=== PATIENT | female | born 1970 | race Caucasian/White ===

== ENCOUNTER → 2016-05-16 | Outpatient (CLI) | payer OTHER ==
[~2016-05-16] MED LIST: BENZ100C97 PO; LIDOCAINE 1% 30ml (STERI-PAK) ONE; LIDOCAINE 2%/EPI 1:100,000 20ml MDV ONE; METH4TAB3 PO; NORMAL SALINE 250 ML IV ONE; PNV1TABL9
== END ==
LOC: WC.BC 12:52
PROVIDERS: ATTEND Registered Nurse
DX: N60.21 Fibroadenosis of right breast (principal); N60.31 Fibrosclerosis of right breast; N60.81 Other benign mammary dysplasias of right breast; N62 Hypertrophy of breast; N63 Unspecified lump in breast; R92.2 Inconclusive mammogram
CPT/HCPCS: 19081; A4648; G0206; J7050

== ENCOUNTER 2016-05-25 07:47 | Outpatient (CLI) | payer OTHER ==
[2016-05-25] VITALS (13 sets, daily range): BP systolic 106–132; BP diastolic 54–70; PULSE 68–84; RESP 13–32; TEMP 96.8–98; O2SAT 97–100; Ht 158.8 cm; Wt 65.2 kg
[~2016-05-25] VITALS: Ht 158.8 cm; Wt 65.2 kg
[~2016-05-25 07:47] MED LIST changes: +ASCO500C16 PO; -BENZ100C97 PO; +CALC-136 PO; -LIDOCAINE 1% 30ml (STERI-PAK) ONE; -LIDOCAINE 2%/EPI 1:100,000 20ml MDV ONE; -METH4TAB3 PO; +MULT-1147 PO; -NORMAL SALINE 250 ML IV ONE; -PNV1TABL9; +TOPI100T43 PO
[2016-05-25] MEDS ORDERED: LIDOCAINE 1% 30ml (STERI-PAK) ONE (09:22)
[2016-05-25] MEDS ORDERED: BUPIVACAINE 0.25%/EPI 1:200,000 30ml SDV ONE (10:09)
[2016-05-25] MEDS ORDERED: LIDOCAINE 1% (10mg/ml) 30ml SDV ONE (10:09)
[2016-05-25] MEDS ORDERED: LR 1,000 ML IV PRN (10:44)
--- NOTE | 2016-05-25 10:53 | ANESPREOP ---
Anesthesia Record Date and Time DATE: 05/25/16 TIME: 10:51 Proposed Surgical Procedure RT WIRE LOC BREAST BX Allergies: Coded Allergies: morphine (Verified Allergy, Severe, swelling, itching, 03/17/14) aspirin (Verified Allergy, Intermediate, 03/17/14) nitrofurantoin (Verified Allergy, Intermediate, HIVES, 03/17/14) adhesive tape (Verified Allergy, Unknown, 03/17/14) Ht/Wt/BMI Height: 5 ' 2.50 " Weight: 65.200 kg BMI: 25.9 kg/m2 Vital Signs Date Time Temp Pulse Resp B/P Pulse Ox O2 Delivery O2 Flow Rate FiO2 05/25/16 08:14 98.0 71 13 132/58 100 Room Air Medications Inpatient Medications Current Medications Medications (Trade) Dose Ordered Sig/Prashanth Start Time Stop Time Status Last Admin Dose Admin Lactated Ringer's (Lactated Ringers) 1,000 ml @ 0 mls/hr Q0M PRN 05/25/16 10:44 UNV 05/25/16 10:46 0 MLS/HR Ascorbic Acid (Vitamin C) 500 Mg Capsule.er, 1 CAP PO DAILY, (Reported) Last Taken: on 05/24/16 Calcium Citrate/Vitamin D3 (Calcium Citrate - Vit D Tablet) 1 Each Tablet, 1 TAB PO DAILY, (Reported) Last Taken: on 05/24/16 Multivits Min/Iron/FA/Herb#186 (Hair, Skin & Nails Caplet) 1 Each Tablet, 2 TAB PO DAILY, (Reported) Last Taken: on 05/24/16 Topiramate (Topiramate) 100 Mg Tablet, 1 TAB PO DAILY, (Reported) Last Taken: on 05/24/16 Currently on Beta Angelique: No Medical/Surgical History Anesthesia PMH: Reports: Headaches (freq migraines), Pneumonia (LONG TIME AGO) , Reflux, Denies: *Angina, *Diabetes, *Dyspnea, *Hypertension, *HI, Anesthesia Reactions (NO AIRWAY ISSUES), Arthritis, Asthma, Blood Transfusion Reac, CHF, COPD, CVA/Stroke/TIA, Cancer, Clotting Problems, Deep Vein Thrombosis, Glaucoma , Hepatitis, Hiatal Hernia, Malignant Hyperthermia, Renal Disease, Rheumatic Fever, Seizures, Sleep Apnea, Thyroid Disease, Tuberculosis Smoking Status: Never smoker Use Chewing Tobacco?: No Substance Use Type: does not use HX of Last Menstrual Period: 2007 Past Surgical History Orthopedic Surgeries: Yes - LEFT SHOULDER SURGERY 05/13/10 Abdominal Surgeries: Yes - GALLBLADDER Genitourinary Surgeries: Yes - LITHOTRIPSIES X 4, STENTS PLACED/REMOVED Cardiac Surgeries: No Endocrine Surgeries: No Reproductive Surgeries: Yes - HYST Neurological Surgeries: No Ear Surgeries: No Nose Surgeries: No Throat Surgeries: Yes - TONSILLECTOMY Other Surgeries: No Anesthesia Adverse Reactions: FOUND none Hx of Motion Sickness: No Pertinent Findings EKG Rhythm: Sinus Rhythm Physical Exam Respiratory: Bilat breath sounds equal, Lungs clear Cardiovascular: FOUND Regular rate, rhythm, FOUND No murmur Airway Assessment Mallampati Score: I Neck Extension: Good Overall Assessment: No Airway Concerns ASA: 1 Plan Anesthesia Plan: LMA Discussion Discussed risks/options/alternatives of anesthesia and questions answered. Patient consents. Nursing pain assessment noted. Present: Family Member Attestation Statement Prior to the delivery of any anesthetic medication, I examined the patient, developed the plan, obtained the patient's consent and discussed the risk and benefits of the procedure with the patient/guardian. CLEMENTE LUJAN MD May 25, 2016 10:53
[2016-05-25] MEDS ORDERED: FENTANYL 250mcg/5ml INJECTION ONE (10:58)
[2016-05-25] MEDS ORDERED: ONDANSETRON 4mg/2ml INJECTION ONE (10:59)
[2016-05-25] MEDS ORDERED: DEXAMETHASONE 4mg/ml - 1ml INJECTION ONE (10:59)
[2016-05-25] MEDS ORDERED: PROPOFOL 200mg 20 ML IV ONE (10:59)
[2016-05-25] MEDS ORDERED: BUPIVACAINE 0.25% (2.5mg/ml) INJ 30ml SDV ONE (12:10)
[2016-05-25] MEDS ORDERED: LR 1,000 ML IV SCH (13:41)
--- NOTE | 2016-05-25 13:44 | GSPOSTPROC ---
Immediate Operative Note DATE: 05/25/16 TIME: 13:44 Postop Diagnosis: right breast mass - pathology pending Surgery Lateral: Right Surgical Procedure: Other (wire localized breast biopsy) Surgeon: Valdez ASA: 1 DEVON WHITLEY MD May 25, 2016 13:44
[2016-05-25] MEDS ORDERED: HYDROCODONE/APAP 5 mg/325 mg TABLET PO PRN (13:45)
[2016-05-25] MEDS ORDERED: METOCLOPRAMIDE 10mg/2ml INJECTION IV PRN (13:45)
[2016-05-25] MEDS ORDERED: HYDR-4246 PO (13:46)
--- NOTE | 2016-05-25 14:52 | ANESPO ---
Post-Op Note Date 05/25/16 Time: 14:52 Status Vital Signs Date Time Temp Pulse Resp B/P Pulse Ox O2 Delivery O2 Flow Rate FiO2 05/25/16 14:46 68 18 117/62 100 Room Air 05/25/16 14:15 96.8 Respiratory Function: Airway patent Cardiovascular Function: Regular pulse Mental Status: Alert/oriented Pain Level Intensity: 5 Hydration: Taking po fluids Complications during Recovery None apparent Follow-Up Instructions Instructions Per Surgeon CLEMENTE LUJAN MD May 25, 2016 14:52
--- NOTE | 2016-05-25 15:11 | NUR ---
Discharge Pt discharged from SCU via wheelchair at this time at ER exit. Pt got into passenger side of vehicle with pts cousin driving. personal belongings returned to pt. Pt in no acute distress at time of departure.
--- NOTE | 2016-05-26 08:23 | NUR ---
SEE POST-OP PHONE CALL PATIENT BELIEVES SHE MAY BE ALLERGIC TO BLUE DYE USED IN OR.
--- NOTE | 2016-05-26 13:43 | OPNOTEF ---
DATE OF OPERATION 05/25/2016 SURGEON Kiran Kellogg MD PREOPERATIVE DIAGNOSIS Right breast mass at the 12 o'clock position. POSTOPERATIVE DIAGNOSIS Right breast mass at the 12 o'clock position - pathology pending. ANESTHESIA General ASA CLASS 1 INDICATIONS The patient is a 45-year-old female who had her initial routine screening mammogram done on 04/28/2016. There had been an irregularity noted in the 12 o'clock position of the right breast. She had a sonogram performed that showed the mass and a stereotactic biopsy was recommended. The patient's pathology came back discordant to her BIRADS 5 imaging category. Because of this, she was referred to my clinic to discuss open biopsy and she did elect to proceed. FINDINGS Verbal report from radiology stated that the clip was contained within the middle of the specimen. The localization wire was slightly posterior and medial to the clip location on mammography. The discussion with the radiologist had indicated that the spiculated lesion seen on Tomosynthesis was actually more targeted by the thickened portion of the wire. DESCRIPTION OF PROCEDURE After informed consent was obtained the patient was taken to the operating room and placed in the supine position. General anesthesia was administered by the anesthesia team. The patient's right breast was then prepped and draped in usual sterile fashion. Local was used to anesthetize the planned incision over the lesion. Incision was then made with a scalpel and electrocautery was used to dissect down into the subcutaneous tissue. The localization wire was then brought into the operative incision and sharp dissection was performed along the wire until the thickened portion of the wire was identified. At this point the open biopsy specimen was then fashioned and the tissue was dissected free circumferentially using cautery. Tissue was elevated with an Allis clamp to complete the dissection posteriorly until the specimen was removed. The specimen was marked with a long stitch lateral, short stitch superior, and single stitch anterior. It was sent to pathology for a specimen mammogram that did reveal the clip was removed. The wound was inspected for hemostasis. A clip was placed at the superior and lateral aspects of the biopsy cavity. The wound was irrigated and suctioned free of fluid. Hemostasis was assured. The dermis was reapproximated with buried interrupted 3-0 Vicryl stitches and the skin was closed with running subcuticular 4-0 Monocryl stitch. Dermabond was placed as a dressing. The patient was awakened and transferred to the recovery area in stable condition. STEPHANIE
== END 2016-05-25 15:11 | disposition home or self-care (01) ==
LOC: SCU 07:47
PROVIDERS: ATTEND Surgery
DX: N62 Hypertrophy of breast (principal); N63 Unspecified lump in breast; Z80.3 Family history of malignant neoplasm of breast
CPT/HCPCS: 19101; 19281; J1100; J2405; J2704; J3010; J7120